=== PATIENT | female | born 1985 | race Two or more races ===

== ENCOUNTER 2016-11-18 21:16 | Emergency (ER) | payer SELFPAY ==
[~2016-11-18] VITALS: Ht 160 cm; Wt 63.5 kg
[2016-11-18 21:25] VITALS: BP 111/75
[2016-11-18] MEDS ORDERED: methylPREDNISolone ACETATE 80 MG/ML VIAL ONE (21:57)
[2016-11-18] MEDS ORDERED: methylPREDNISolone ACETATE 40 MG/ML VIAL IM ONE (22:00)
[2016-11-18] MEDS ORDERED: WATER FOR INJECTION,STERILE 10 ML ONE (22:08)
== END 2016-11-18 22:29 | disposition home or self-care (01) ==
LOC: ER 21:18
DX: R21 Rash and other nonspecific skin eruption (principal); Z91.018 Allergy to other foods
CPT/HCPCS: A4606; J1030; J1040; Z7610